=== PATIENT | male | born 1960 | race Caucasian/White ===

== ENCOUNTER 2018-07-14 22:29 | Emergency (ER) | payer BC ==
[2018-07-14] MEDS ORDERED: GLUCAGON,HUMAN RECOMB 1 MG INJ SUBCUT ONE (22:45)
--- NOTE | 2018-07-14 22:47 | ER Document Report ---
ED Medical Screen (RME) - General Chief Complaint: Difficulty Swallowing Stated Complaint: SWALLOWING DIFFICULTY Time Seen by Provider: 07/14/18 22:45 Notes: 57-year-old male with chief complaint of food bolus obstruction. He was eating pork chops, suddenly became unable to swallow, he states he is trying to drink and afterwards immediately vomits. He states he has had a few times where he felt like he got something stuck but he has never been obstructed before, never had an EGD, takes no medications, does not see a provider. TRAVEL OUTSIDE OF THE [place] IN LAST 30 DAYS: No Physical Exam - General General appearance: Appears well In distress: None - Abdominal Tenderness: Nontender Course - Re-evaluation Re-evalutation: Patient trying to drink water in triage, probably vomited Ethel back out. Appears to be completely obstructed. Doctor's Discharge - Discharge Referrals: LOCALIL,NO [Primary Care Provider] - Follow up as needed
[2018-07-14] MEDS ORDERED: ONDANSETRON HCL INJ/PF 4 MG/2 ML SDV IV ONE (23:04)
--- NOTE | 2018-07-14 23:20 | ER Document Report ---
ED General - General Chief Complaint: Difficulty Swallowing Stated Complaint: SWALLOWING DIFFICULTY Time Seen by Provider: 07/14/18 22:45 TRAVEL OUTSIDE OF THE [place] IN LAST 30 DAYS: No - HPI Notes: 57-year-old male presents with esophageal food bolus. He was eating a pork chop around 630. His next few bites were unable to go down so he went to the bathroom and tried to vomit. He states it was not like normal vomit. He has been unable to tolerate any secretions since and has been spitting up into a cup. He denies any chest pain or shortness of breath. He has had similar episodes in the past, but was always able to drink water to get things to move down. No prior upper endoscopy. Past Medical History - Social History Smoking Status: Unknown if Ever Smoked Family History: Reviewed & Not Pertinent Review of Systems - Review of Systems Notes: Constitutional: Negative for fever. HENT: Negative for sore throat. Eyes: Negative for visual changes. Cardiovascular: Negative for chest pain. Respiratory: Negative for shortness of breath. Gastrointestinal: Esophageal food bolus. Vomiting. No diarrhea or abdominal pain. Genitourinary: Negative for dysuria. Musculoskeletal: Negative for back pain. Skin: Negative for rash. Neurological: Negative for headaches, weakness or numbness. 10 point ROS negative except as marked above and in HPI. Physical Exam - Notes Notes: PHYSICAL EXAMINATION: GENERAL: Well-appearing, well-nourished and in no acute distress. Frequently spitting and gagging into a emesis basin HEAD: Atraumatic, normocephalic. EYES: Pupils equal round and reactive to light, extraocular movements intact, conjunctiva are normal. ENT: nares patent, oropharynx clear without exudates. Moist mucous membranes. NECK: Normal range of motion, supple without lymphadenopathy LUNGS: Breath sounds clear to auscultation bilaterally and equal. No wheezes rales or rhonchi. HEART: Regular rate and rhythm, no chest wall tenderness ABDOMEN: Soft, nontender, normoactive bowel sounds. No guarding, no rebound. No masses appreciated. EXTREMITIES: Normal range of motion, no pitting or edema. No cyanosis. NEUROLOGICAL: Cranial nerves grossly intact. Normal speech, normal gait. Normal sensory and motor exams. PSYCH: Normal mood, normal affect. SKIN: Warm, Dry, normal turgor, no rashes or lesions noted. Course - Re-evaluation Re-evalutation: 07/14/18 23:16 Glucagon and Zofran ordered. Discussed with GI, Dr. Pappas for evaluation. Patient and updated on need for endoscopy. Discharge - Discharge Clinical Impression: Food impaction of esophagus Condition: Stable Admitting Provider: DR Pappas Referrals: LOCALPR,NO [Primary Care Provider] - Follow up as needed
--- NOTE | 2018-07-14 23:47 | PDOC CONSULTATION ---
Consultation Consult Date: 07/14/18 Attending physician:: ESPERANZA THAKUR Consult reason:: food bolus impaction History of Present Illness History of Present Illness: RENA EDMONDSON is a 57 year old male patient was having dinner earlier tonight history of GERD in the past following eating some pork chop, could not swallow any more vomiting contents patient states has happened in the past, but has resolved no weight loss patient is able to speak in full sentences will need EGD for foreign body removal denies any shortness of breath denies any chest pain no previous EGD in the past Social History Smoking Status: Unknown if Ever Smoked Family History Family History: Reviewed & Not Pertinent Parental Family History Reviewed: Yes Children Family History Reviewed: Unknown Sibling(s) Family History Reviewed.: Unknown Review of Systems Constitutional: ABSENT: fever(s), headache(s), night sweats, weakness Eyes: ABSENT: visual disturbances Ears: ABSENT: hearing changes Nose, Mouth, and Throat: ABSENT: mouth pain, sore throat Cardiovascular: ABSENT: orthropnea Respiratory: ABSENT: dyspnea, hemoptysis Gastrointestinal: ABSENT: diarrhea, hematemesis, hematochezia, melena Genitourinary: ABSENT: dysuria, hematuria Musculoskeletal: ABSENT: deformity, joint swelling Integumentary: ABSENT: lesions, pruritus Neurological: ABSENT: syncope, tingling, tremor(s), vertigo, weakness Endocrine: ABSENT: polydipsia, polyphagia, polyuria Hematologic/Lymphatic: ABSENT: easy bruising Physical Exam General appearance: PRESENT: mild distress, well-developed, well-nourished Head exam: PRESENT: atraumatic, normocephalic Eye exam: PRESENT: EOMI, PERRLA. ABSENT: nystagmus, periorbital swelling, scleral icterus Mouth exam: PRESENT: moist, neck supple Teeth exam: ABSENT: edentulous Throat exam: ABSENT: tonsillar exudate, tonsillogmegaly Neck exam: ABSENT: meningismus, tenderness, thyromegaly Respiratory exam: PRESENT: symmetrical, unlabored. ABSENT: tachypnea, wheezes Cardiovascular exam: PRESENT: irregular rhythm, +S1, +S2 GI/Abdominal exam: PRESENT: soft. ABSENT: rebound, rigid, tenderness Gentrourinary exam: ABSENT: lesions Extremities exam: ABSENT: joint swelling Musculoskeletal exam: PRESENT: full ROM Neurological exam: PRESENT: alert, awake, oriented to time, CN II-XII grossly intact Psychiatric exam: PRESENT: appropriate affect Focused psych exam: ABSENT: restlessness Skin exam: PRESENT: normal color. ABSENT: mottled, pallor, urticaria, vesicles Assessment & Plan - Diagnosis (1) Food impaction of esophagus Plan: will need EGD ? possible Schatzki's ring vs peptic stricture Risks, benefits and alternatives are discussed with the patient in detail further recommendations to follow patient is willing to proceed - Time Time Spent: 50 to 70 Minutes
[2018-07-15] MEDS ORDERED: FENTANYL CITRATE INJ/PF 100 MCG/2 ML AMPUL ONE (00:10)
[2018-07-15] MEDS ORDERED: DIPHENHYDRAMINE HCL 50 MG/ML VIAL ONE (00:10)
[2018-07-15] MEDS ORDERED: ONDANSETRON HCL INJ/PF 4 MG/2 ML SDV ONE (00:10)
[2018-07-15] MEDS ORDERED: FLUMAZENIL INJ 0.5 MG/5 ML VIAL ONE (00:11)
[2018-07-15] MEDS ORDERED: EPINEPHRINE INJ 1 MG/10 ML DISP.SYRIN ONE (00:11)
[2018-07-15] MEDS ORDERED: GLUCAGON,HUMAN RECOMB 1 MG INJ ONE (00:11)
[2018-07-15] MEDS ORDERED: NALOXONE HCL INJ/PF 0.4 MG/1 ML SDV ONE (00:11)
[2018-07-15] MEDS: MIDAZOLAM 2 MG/2 ML INJ ONE ×2 (00:26→00:30)
--- NOTE | 2018-07-15 00:57 | Operative Report ---
Operative Report DATE OF SURGERY: 07/15/18 Operative Report: The risks benefits and alternatives of the procedure explained to the patient in detail and informed consent is obtained.A GIF Olympus video scope was inserted into the patient's mouth and hypopharynx, the esophagus is identified intubated and insufflated, the scope was then advanced through the esophagus stomach and duodenum, retroflexion maneuver is done, the esophagus stomach and first and second portions of the duodenum examined PREOPERATIVE DIAGNOSIS: Food bolus impaction, dysphagia POSTOPERATIVE DIAGNOSIS: Concentric rings and furrows in the esophagus suggestive of eosinophilic esophagitis status post biopsy. Hiatal hernia. Mild Schatzki's ring. Gastritis status post biopsy rule out Helicobacter pylori. Foreign body present in the esophagus. This was pushed into the stomach OPERATION: EGD with foreign body removal. EGD with biopsy SURGEON: ESPERANZA THAKUR ANESTHESIA: Moderate Sedation - 4 mg of Versed, 100 mcg of fentanyl. Conscious sedation monitoring time 30 minutes. TISSUE REMOVED OR ALTERED: As noted above. COMPLICATIONS: None. ESTIMATED BLOOD LOSS: None. INTRAOPERATIVE FINDINGS: As noted above. PROCEDURE: Patient tolerated procedure well. No immediate postprocedure complications are noted. Patient discharged in good condition. Discharge date . Discharge diet: Regular. Discharge activity: Regular. 2-3 week follow-up to discuss findings. We will wait on pathology. Patient to return to the emergency room if there are any further problems or questions.
[2018-07-15 02:32] VITALS: BP 133/74
== END 2018-07-15 02:30 | disposition home or self-care (01) ==
LOC: ER 22:29
DX: T18.128A Food in esophagus causing other injury, initial encounter (principal); X58.XXXA Exposure to other specified factors, initial encounter; Y93.89 Activity, other specified; K29.50 Unspecified chronic gastritis without bleeding; K44.9 Diaphragmatic hernia without obstruction or gangrene; K22.2 Esophageal obstruction
CPT/HCPCS: 99284; 96372; 96374; 43239; 43247; 88342 ×2; 88305 ×2; J2250; J3010; J1610; J2405; J0171; J1200; J2310; J3490